=== PATIENT | female | born 1955 | race Caucasian/White ===

== ENCOUNTER 2016-08-16 08:09 | Day surgery (SDC) | payer OTHER ==
[~2016-08-16] VITALS: Ht 152.4 cm; Wt 57.0 kg
[2016-08-16] VITALS (11 sets, daily range): BP systolic 101–143; BP diastolic 53–74; PULSE 60–80; RESP 14–24; Ht 152.4 cm; Wt 57.0 kg
[~2016-08-16 08:09] MED LIST: ALBU8.5H3 INH; CEFAZOLIN 1 GM/50 ML (PMX) 50 ML IVPB ONE; CLOP75TA27 PO; FENO145T25 PO; HYDR-762 PO; METO25TA7 PO; PANT40TA4 PO; SIMV40TA2 PO
[2016-08-16] MEDS ORDERED: CARV3.12 PO (09:11)
[2016-08-16] MEDS ORDERED: ASPI-664 PO (09:11)
[2016-08-16] MEDS ORDERED: PANT40SU PO (09:11)
[2016-08-16] MEDS ORDERED: EZET10TA3 PO (09:11)
[2016-08-16] MEDS ORDERED: ATOR20TA38 PO (09:11)
[2016-08-16] MEDS ORDERED: ALPR0.254 PO (09:11)
[2016-08-16] MEDS ORDERED: HYDR-906 PO (09:11)
[2016-08-16 09:12] LABS: ADD SCAN DIFF NO
[2016-08-16] MEDS ORDERED: FAMOTIDINE 20 MG INJ IV ONE (09:15)
[2016-08-16] MEDS ORDERED: DIPHENHYDRAMINE 50 MG INJ IV ONE (09:15)
[2016-08-16] MEDS ORDERED: METHYLPREDNISOLONE 125 MG INJ IV ONE (09:15)
[2016-08-16 09:18] LABS: BASOPHILS % 0.3 % (0.0-2.0); EOSINOPHILS # 0.2 10^3/ul (0.0-0.5); EOSINOPHILS % 2.3 % (0.0-7.0); HEMOGLOBIN 13.7 g/dl (12.0-16.0); LYMPHOCYTES # 2.4 10^3/ul (0.8-2.9); LYMPHOCYTES % 25.1 % (15.0-51.0); MEAN CORPUSCULAR HEMOGLOBIN 29.3 pg (29.0-33.0); MEAN CORPUSCULAR HGB CONC 33.4 g/dl (32.0-37.0); MEAN CORPUSCULAR VOLUME 87.8 fl (82.0-101.0); MEAN PLATELET VOLUME 9.6 fl (7.4-10.4); MONOCYTE # 0.5 10^3/ul (0.3-0.9); MONOCYTES % 5.1 % (0.0-11.0); NEUTROPHIL # 6.3 10^3/ul (1.6-7.5); NEUTROPHILS % 66.9 % (39.0-77.0); PLATELET COUNT 240 10^3/UL (140-415); RED BLOOD COUNT 4.67 10^6/ul (4.20-5.40); RED CELL DISTRIBUTION WIDTH 12.6 % (11.5-14.5); WHITE BLOOD COUNT 9.4 10^3/ul (4.8-10.8)
[2016-08-16 09:22] LABS: INR 0.95; PARTIAL THROMBOPLASTIN TIME 29.5 Sec (25.0-35.0); PROTIME 12.7 Sec (12.2-14.2)
[2016-08-16 09:30] LABS: CALCIUM 9.2 mg/dl (8.4-10.2); CREATININE 0.73 mg/dl (0.44-1.00); POTASSIUM 3.6 mmol/L (3.5-5.1)
[2016-08-16] MEDS ORDERED: POLYMYXIN/BACITRACIN 1L IRRIG IRR ONE (09:30)
[2016-08-16] MEDS ORDERED: LIDOCAINE 1%/EPI 30 ML INJ ONE (10:27)
[2016-08-16] MEDS ORDERED: FENTAnyl 50 MCG/ML VIAL ONE ×2 (10:27→11:53)
[2016-08-16] MEDS ORDERED: BUPIVACAINE 0.5% (SDV) 30 ML INJ ONE (10:27)
[2016-08-16] MEDS ORDERED: LIDOCAINE 1% (MDV) 20 ML INJ ONE (10:27)
[2016-08-16] MEDS ORDERED: IODIXANOL LOCM 100 ML BTL ONE ×2 (10:27→11:05)
[2016-08-16] MEDS ORDERED: DIPHENHYDRAMINE 50 MG INJ ONE ×2 (10:27→11:53)
[2016-08-16] MEDS ORDERED: MIDAZOLAM 1 MG/ML 2 ML INJ ONE ×2 (10:27→11:49)
[2016-08-16] MEDS ORDERED: SOD CHLORIDE 0.9% 1,000 ML ONE ×2 (11:05→11:52)
--- NOTE | 2016-08-16 11:58 | OPR ---
DATE OF OPERATION: 08/16/2016 INDICATION FOR THE PROCEDURE: Chest pain, shortness of breath, abnormal stress test. The patient presents for left heart catheterization. PROCEDURE: 1. Left heart catheterization. 2. Selective right coronary angiography. 3. Selective left coronary angiography. 4. Left ventriculogram not performed; however, pressure monitoring was performed. Therefore, the s jewel as LV pressure measurements. 5. O2 saturation monitoring and blood pressure monitoring. 6. Conscious sedation for 1 hour. 7. Right femoral artery angiography and Angio-Seal deployment through the right femoral artery. 8. Defibrillator pad placements anteriorly and posteriorly. DESCRIPTION OF PROCEDURE: After informed consent was obtained by the patient, the patient was broug ht into the cardiac catheterization laboratory where the patient's right groin and left groin were p repped and draped in the usual sterile fashion. Following this, 1% lidocaine was used in order to i nfiltrate the right groin. Following this, the patient then received a 5-Kazakh sheath into the [facility] femoral artery. Following this, utilizing a JL4 and JR4 as well as a pigtail, catheterization wa s performed. No complications occurred. FINDINGS: 1. The patient did not have any coronary vascular disease discovered in the left main. 2. The LAD and circumflex came off of the left main, and it had less than 5% stenosis in both vesse ls. 3. The RCA also was not dominant and there was semi-selective injection, and it was patent with 5% or less stenosis. 4. Left ventricular pressure measurements LVEDP was 16 mmHg. IMPRESSION: No significant coronary vascular disease discovered. An echo will be ordered in the future for ejection fraction measurements. The patient has had a his tory of cardiomyopathy with an ejection fraction of less than 35% in the past. Dictated By: PARAM BUTTERFIELD MD LP/NTS Conf#: [id number] DID#: [id number] CC: PARAM BUTTERFIELD MD;*EndCC*
--- NOTE | 2016-08-16 11:59 | OPR ---
DATE OF OPERATION: 08/16/2016 INDICATION FOR PROCEDURE: This is a right heart catheterization report. PROCEDURES: 1. Right heart catheterization. 2. Mouthcard-Javier catheterization. 3. Femoral vein central line placement. 4. Removal of the central line. 5. Defibrillator pad placements anteriorly and posteriorly. 6. Pulmonary artery angiography in nonselective fashion. 7. Conscious sedation for 1 hour. 8. Fluoroscopy and fluoroscopic use in order to guide needle placement to the vessel. FINDINGS: 1. The PA pressure was 28/10. The wedge pressure was 13. 1. RV pressure was 29/3. 2. The PA pressure was 7/0. The patient does not have significant pulmonary hypertension. The patient will be treated medically. Dictated By: PARAM BUTTERFIELD MD LP/NTS Conf#: [id number] DID#: [id number] CC: PARAM BUTTERFIELD MD;*EndCC*
[2016-08-16] MEDS ORDERED: predniSONE 20 MG TAB PO SCH (12:30)
[2016-08-16] MEDS ORDERED: DIPHENHYDRAMINE 25 MG CAP PO SCH (12:30)
--- NOTE | 2016-08-16 12:36 | OPR ---
DATE OF OPERATION: 08/16/2016 INDICATION FOR THE PROCEDURE: [employer] device recall on the battery. There has bee n a recall in regards to the battery not lasting as long as it recommended to last. As a result, truman e patient has had received ventricular tachycardia therapies in the past and therefore now the patie nt presents for replacement of the battery NAME OF PROCEDURE: 1. Interrogation and reprogramming of the implantable cardiac defibrillator. 2. Interrogation and reprogramming of the implantable cardiac defibrillator postprocedure. 3. Removal of the implantable cardiac defibrillator. 4. Implantation of a new cardiac defibrillator. 5. Pocket revision. 6. Right atrial pacing recording. 7. Right ventricular pacing recording. 8. Defibrillation threshold testing. 9. External cardioversion x1. 10. Conscious sedation for 1 hour. DESCRIPTION OF PROCEDURE: After informed consent was obtained by the patient, the patient was broug ht into the cardiac catheterization laboratory where the patient's left chest and neck region was pr epped and draped in the usual sterile fashion. The patient was also given pre-IV antibiotic medicat ions. Following this, the device was removed after it was already reprogrammed. Following this, truman e pocket was revised. Then, a new device was brought into the field and connected to the leads afte r the leads were tested 1 by 1 with an alligator clip to make sure that the impedance and thresholds as well as sensing was within normal limits. Following this, the patient had the pocket revised, a s I mentioned, irrigated, and the device and leads were placed into the pocket. Pocket was sutured using 2-0 Vicryl and 4-0 Vicryl. DFT testing was performed and the modified ULV method revealed DFT of 20 joules. No complications o ccurred. EXPLANTED MATERIAL: A [employer] dual-chamber implantable cardiac defibrillator, model #CD225 [id number]. Serial #[id number]. Date of implant is 04/02/2013. Explant is today, 08/16/2016. Pacing and sensing was performed and it was within normal limits. Please see the implant sheet. Ot her lead information is also dictated on the implant sheet. IMPRESSION: Successful replacement of an implantable cardiac defibrillator with no complications. Dictated By: PARAM BUTTERFIELD MD, LP/BETTY Conf#: [id number] DID#: [id number] CC: PARAM BUTTERFIELD MD;*[facility]*
[2016-08-16] MEDS ORDERED: CEFAZOLIN 1 GM/50 ML (PMX) 50 ML IVPB SCH (13:00)
--- NOTE | 2016-08-16 16:01 | RADRPT ---
Vent Rate: 60 bpm RR Interval: 0 msec MT Interval: 132 msec QRS Duration: 86 msec QT Interval: 444 msec QTC Interval: 444 msec P-R-T [place]: 77 - 75 - 74 degrees Electronic atrial pacemaker Cannot rule out Anterior infarct , age undetermined Abnormal ECG Electronically Signed By: Oswaldo Rodrigues [id number]
== END 2016-08-16 15:10 | disposition home or self-care (01) ==
LOC: SDS 08:09
PROVIDERS: ATTEND Internal Medicine
DX: I47.2 Ventricular tachycardia (principal); I25.10 Atherosclerotic heart disease of native coronary artery without angina pectoris; R94.39 Abnormal result of other cardiovascular function study; E78.5 Hyperlipidemia, unspecified; F41.9 Anxiety disorder, unspecified
CPT/HCPCS: 33264; 80048; 85025; 85610; 85730; 93005; 93460; C1721; C1887; C1894; J1200; J1644; J2250; J2930; J3010; J7040; J7512; Q9967; Z7610

== ENCOUNTER 2017-01-24 20:08 | Emergency (ER) | payer OTHER ==
[~2017-01-24] VITALS: Ht 152.4 cm; Wt 53.0 kg
[~2017-01-24 20:08] MED LIST changes: +ALPR0.254 PO; +ASPI-664 PO; +ATOR20TA38 PO; +CARV3.12 PO; -CEFAZOLIN 1 GM/50 ML (PMX) 50 ML IVPB ONE; +EZET10TA3 PO; -FENO145T25 PO; +HYDR-906 PO; -METO25TA7 PO; +PANT40SU PO; -SIMV40TA2 PO
[2017-01-24 20:15] VITALS: Ht 152.4 cm; Wt 53.0 kg
[2017-01-24] MEDS ORDERED: ALBUTEROL 0.083% (NEB) 2.5 MG/3 ML AMP NEB STA (22:25)
[2017-01-24] MEDS ORDERED: IPRATROPIUM (NEB) 0.5 MG/2.5 ML AMP NEB STA (22:25)
--- NOTE | 2017-01-24 22:53 | ERA ---
ER Documentation Chief Complaint Date/Time DATE: 01/24/17 TIME: 22:50 Chief Complaint pt bib friend with c/o weakness and feeling sob HPI This is a 61-year-old female with a history of CHF, EF around 35%, COPD with remote smoking history who presents with multiple complaints including generalized weakness and fatigue, chills, shortness of breath. She describes bilateral lower extremity swelling that is slightly worse than usual, shortness of breath that is worse when laying flat. She occasionally describes chest pain that is pressure-like but not currently present. She denies any significant cough, no productive cough no pleuritic pain. ROS All systems reviewed and are negative except as per history of present illness. Medications Home Meds Active Scripts Prednisone* (Prednisone*) 20 Mg Tab, 40 MG PO DAILY for 4 Days, TAB Prov:JEOVANNY MORALES MD 01/25/17 Levofloxacin* (Levaquin*) 750 Mg Tablet, 750 MG PO DAILY for 5 Days, TAB Prov:JEOVANNY MORALES MD 01/25/17 Albuterol Sulfate* (Ventolin HFA*) 18 Gm Hfa.aer.ad, 2 PUFF INHALATION Q4H, #1 INHALER Prov:JEOVANNY MORALES MD 01/25/17 Reported Medications Cholecalciferol* (Vitamin D3*) 1,000 Unit Tablet, 2000 UNIT PO DAILY, TAB 01/24/17 Calcium Carbonate/Vitamin D3 (OYSTER SHELL 500 MG + VIT D TB) 1 Each Tablet, 1 EACH PO, TAB 01/24/17 Tiotropium [place]* (Spiriva*) 18 Mcg Cap.w.dev, 1 CAP INHALATION DAILY, #30 CAP 01/24/17 Cholestyramine* (Cholestyramine* Powder) 378 Gm Powder, 4 GM PO TID, EA 01/24/17 Albuterol Sulfate* (Ventolin HFA*) 18 Gm Hfa.aer.ad, 2 PUFF INHALATION Q4H, #1 INHALER 01/24/17 Tramadol Hcl* (Ultram*) 50 Mg Tablet, 50 MG PO Q8, TAB 01/24/17 Ubidecarenone/Vitamin E Mixed (Nue39-Xxd E 100 mg-10 Unit Sfg) 1 Each Capsule, 1 EACH PO, CAP 01/24/17 Multivitamins* (Theragran*) 1 Tab Tab, 1 TAB PO DAILY, TAB 01/24/17 Hydrocodone/Acetaminophen ([place] 5-325 Tablet) 1 Each Tablet, 1 EACH PO Y for PAIN, TAB 08/16/16 Carvedilol* (Coreg*) 3.125 Mg Tablet, 3.125 MG PO BID, #60 TAB 08/16/16 Atorvastatin Calcium* (Atorvastatin Calcium*) 20 Mg Tablet, 20 MG PO QHS, #30 TAB 08/16/16 Ezetimibe* (Zetia*) 10 Mg Tablet, 10 MG PO DAILY, TAB 08/16/16 Aspirin* (Aspirin* EC) 81 Mg Tablet.dr, 81 MG PO DAILY, TAB 08/16/16 Clopidogrel Bisulfate (Clopidogrel) 75 Mg Tablet, 75 MG PO DAILY, #30 TAB 02/20/16 Pantoprazole* (Pantoprazole*) 40 Mg Tablet.dr, 40 MG PO AC BREAKFAST DINNER, TAB 08/03/15 Discontinued Reported Medications Alprazolam (Xanax) 0.25 Mg Tab, 0.25 MG PO BID Y for ANXIETY, TAB 08/16/16 Pantoprazole Sodium (Protonix) 40 Mg Granpkt.dr, 40 MG PO DAILY 08/16/16 Discontinued Scripts Albuterol Sulfate* (Proair HFA*) 8.5 Gm Hfa.aer.ad, 2 PUFF INH Q4 for WHEEZING, #1 INHALER Prov:CAROL CHRISTIAN MD 09/03/15 Hydrocodone Bit-Acetaminophen* ([place]*) 10-325 Mg Tablet, 1 TAB PO Q6 Y for PAIN , #7 TAB Prov:LINDA BATISTA MD 08/03/15 Allergies Allergies: Coded Allergies: codeine (Verified Allergy, Mild, 02/20/16) erythromycin base (Verified Allergy, Mild, 02/20/16) ibuprofen (Verified Allergy, Mild, 02/20/16) tetracycline (Verified Allergy, Mild, 02/20/16) iodine (Verified Allergy, Unknown, 02/20/16) Uncoded Allergies: DYE (Allergy, Mild, 02/20/16) IV CONTRAST DYE PMhx/Soc History of Surgery: Yes (APPY,HYSTERECTOMY,BREAST AUGMENTATION,AICD,) Anesthesia Reaction: No Hx Neurological Disorder: No Hx Respiratory Disorders: No Hx Cardiac Disorders: Yes (HTN,VENTRICULAR TACHYCARDIA,CAD,HYPERLIPIDEMIA,) Hx Psychiatric Problems: Yes (ANXIETY) Hx Miscellaneous Medical Probl: Yes (LUMPHOMA,ARTHRITIS) Hx Alcohol Use: No Hx Substance Use: No Hx Tobacco Use: Yes (SOMETIMES) Smoking Status: Smoker,current status unk FmHx Family History: No diabetes Physical Exam Vitals Vital Signs Date Time Temp Pulse Resp B/P Pulse Ox O2 Delivery O2 Flow Rate FiO2 01/25/17 01:09 98.7 85 16 105/73 96 Room Air 01/25/17 00:50 67 20 99 21 01/25/17 00:00 Nasal Cannula 2 01/24/17 23:47 66 20 96 21 01/24/17 22:30 100.1 01/24/17 22:17 98.9 89 22 132/84 97 Room Air 01/24/17 20:15 99.2 92 24 125/89 97 Physical Exam General: Slight increased work of breathing head: Normocephalic, atraumatic Eyes: Pupils equally reactive, EOM intact ENT: Moist mucous membranes Neck: Supple, no lymphadenopathy Respiratory: Rhonchi at the bases bilaterally, slight increased work of breathing and tachypnea cardiovascular: RRR, no murmurs, rubs, or gallops Abdominal: Soft, non-tender, non-distended, no peritoneal signs : Deferred MSK: Scant bilateral pedal edema, no unilateral swelling, 5/5 strength Neurologic: Alert and oriented, moving all extremities, normal speech, no focal weakness, no cerebellar signs Skin: No rash Psych: Normal mood Result Diagram: 01/24/17224901/24/172249 Results 24 hrs Laboratory Tests Test 01/24/17 22:45 01/24/17 22:50 01/25/17 00:37 Lactic Acid Level 1.4mmol/L 1.1mmol/L White Blood Count 10.910^3/ul Red Blood Count 5.0210^6/ul Hemoglobin 14.5g/dl Hematocrit 43.0% Mean Corpuscular Volume 85.7fl Mean Corpuscular Hemoglobin 28.9pg Mean Corpuscular Hemoglobin Concent 33.7g/dl Red Cell Distribution Width 12.5% Platelet Count 12178^3/UL Mean Platelet Volume 9.8fl Neutrophils % 66.3% Lymphocytes % 24.2% Monocytes % 8.3% Eosinophils % 0.5% Basophils % 0.2% Nucleated Red Blood Cells % 0.0/100WBC Neutrophils # (Manual) 7.310^3/ul Lymphocytes # 2.610^3/ul Monocytes # 0.910^3/ul Eosinophils # 0.110^3/ul Basophils # 0.010^3/ul Nucleated Red Blood Cells # 0.010^3/ul Sodium Level 141mmol/L Potassium Level 3.7mmol/L Chloride Level 106mmol/L Carbon Dioxide Level 24mmol/L Anion Gap 15 Blood Urea Nitrogen 14mg/dl Creatinine 0.72mg/dl Glucose Level 112mg/dl Calcium Level 10.0mg/dl Troponin I < 0.012ng/ml B-Type Natriuretic Peptide 102PG/ML Current Medications Medications (Trade) Dose Ordered Sig/Gus Route PRN Reason Start Time Stop Time Status Last Admin Dose Admin Albuterol (Proventil 0.083% (Neb)) 2.5 mg ONCE STAT NEB 01/24/17 22:25 01/24/17 22:27 DC 01/24/17 23:47 Ipratropium [place] (Atrovent 0.02% (Neb)) 0.5 mg ONCE STAT NEB 01/24/17 22:25 01/24/17 22:27 DC 01/24/17 23:47 Acetaminophen (Tylenol Tab) 650 mg ONCE ONCE PO 01/24/17 23:00 01/24/17 23:01 DC 01/24/17 23:07 Methylprednisolone Sodium Succinate (Solu-Medrol) 125 mg ONCE STAT IV 01/25/17 00:35 01/25/17 00:37 DC 01/25/17 01:01 Levofloxacin (Levaquin) 750 mg ONCE ONCE PO 01/25/17 01:00 01/25/17 01:01 DC 01/25/17 01:01 Albuterol (Proventil 0.083% (Neb)) 2.5 mg ONCE STAT NEB 01/25/17 00:40 01/25/17 00:41 DC 01/25/17 00:49 Ipratropium [place] (Atrovent 0.02% (Neb)) 0.5 mg ONCE STAT NEB 01/25/17 00:40 01/25/17 00:41 DC 01/25/17 00:50 Procedures/MDM EKG, MONITORS, & DIAGNOSTIC IMAGING: EKG: I reviewed and interpreted a 12-lead EKG. Rhythm: Normal sinus rhythm Ectopy: None Intervals: No abnormalities ST segments: No elevations or depressions T waves: No contiguous inversions Chest x-ray: I reviewed and interpreted a 1 view of the chest Mediastinum: No enlargement Cardiac silhouette: No cardiomegaly Airspace: Clear lung moe bilaterally without evidence of pneumothorax Bones: No evidence of fracture LAB INTERPRETATION: No leukocytosis, negative troponin, normal BNP MEDICAL DECISION MAKING: The patient's presentation has a broad differential including COPD exacerbation , CHF exacerbation, viral syndrome or pneumonia. She feels warm and has a low- grade temperature. Sepsis screening was initiated. The patient does have a poor EF therefore aggressive fluid resuscitation will be held until further assessment with laboratory testing and diagnostic imaging. The patient will benefit from a breathing treatment. The patient describes her chest pain is more consistent with COPD rather than her CHF. It is nonexertional. I do not believe this is consistent with acute coronary syndrome. However, EKG and troponin would be appropriate. ER COURSE: The patient has received 2 breathing treatments. Her laboratory testing and diagnostic imaging is pointing to COPD with exacerbation given normal troponin, normal BNP, chest x-ray without pulmonary edema. The patient has a negative troponin, I do not believe this is consistent with cardiac etiology. The patient was then given steroids and Levaquin to treat COPD with exacerbation. She was reevaluated multiple times and has improved symptoms, her work of breathing has normalized and she is resting comfortably. I discussed inpatient versus outpatient management. The patient prefers discharge home. I believe this is reasonable. No concern for pulmonary embolism or acute coronary syndrome or CHF at this point. She should return for any worsening symptoms. She verbalizes understanding. I kept the patient and/or family informed of laboratory and diagnostic imaging results throughout the emergency room course. DISPOSITION PLAN: We discussed follow up with the patient's primary care doctor within 24 to 48 hours as needed. We also discussed return to the emergency room for worsening symptoms or worsening condition. Outpatient referral: [None required] Discharge Medications: Ventolin, prednisone, Levaquin Departure Diagnosis: Primary Impression: COPD with exacerbation Additional Impression: Viral syndrome Condition: Stable JEOVANNY MORALES MD Jan 24, 2017 22:53
--- NOTE | 2017-01-24 22:58 | RADRPT ---
PROCEDURE: Portable chest x-ray. CLINICAL INDICATION: 61 years of age, female. Chest pain. TECHNIQUE: Portable AP view of the chest. COMPARISON: September 03, 2015 FINDINGS: There is a dual lead left subclavian pacemaker with electrodes over the right atrium and right ventr icle. Right ventricular electrode is positioned more superiorly than on prior exam. Aortic contour is normal. Small heart size. Cardiomediastinal contours are unchanged. Linear left lung base opacity likely represents atelectasis or scar. Lungs are otherwise clear. Negative for pleural effusion or pneumothorax. No acute bony abnormality. IMPRESSION: Dual lead left subclavian pacemaker. Right ventricular lead is in a more superior position than on p rior exam. This is of uncertain significance. Linear opacity left lung base likely represents atelectasis or scar. Small cardiac silhouette is unchanged from prior exam and may be due to lung hyperinflation. RPTAT: HCTS Physician Pankaj Date Time Electronically viewed and signed by Physician Pankaj on 01/24/2017 22:57 /
[2017-01-24] MEDS ORDERED: ACETAMINOPHEN 325 MG TAB PO ONE (23:00)
[2017-01-24 23:25] LABS: BASOPHILS % 0.2 % (0.0-2.0); EOSINOPHILS # 0.1 10^3/ul (0.0-0.5); EOSINOPHILS % 0.5 % (0.0-7.0); HEMOGLOBIN 14.5 g/dl (12.0-16.0); LYMPHOCYTES # 2.6 10^3/ul (0.8-2.9); LYMPHOCYTES % 24.2 % (15.0-51.0); MEAN CORPUSCULAR HEMOGLOBIN 28.9 pg (29.0-33.0); MEAN CORPUSCULAR HGB CONC 33.7 g/dl (32.0-37.0); MEAN CORPUSCULAR VOLUME 85.7 fl (82.0-101.0); MEAN PLATELET VOLUME 9.8 fl (7.4-10.4); MONOCYTE # 0.9 10^3/ul (0.3-0.9); MONOCYTES % 8.3 % (0.0-11.0); NEUTROPHILS % 66.3 % (39.0-77.0); PLATELET COUNT 277 10^3/UL (140-415); RED BLOOD COUNT 5.02 10^6/ul (4.20-5.40); RED CELL DISTRIBUTION WIDTH 12.5 % (11.5-14.5); WHITE BLOOD COUNT 10.9 10^3/ul (4.8-10.8)
[2017-01-24 23:43] LABS: ANION GAP 15 (8-16); BLOOD UREA NITROGEN 14 mg/dl (7-20); CARBON DIOXIDE 24 mmol/L (21-31); CHLORIDE 106 mmol/L (97-110); CREATININE 0.72 mg/dl (0.44-1.00); GLUCOSE 112 mg/dl (70-220); POTASSIUM 3.7 mmol/L (3.5-5.1); SODIUM 141 mmol/L (135-144)
[2017-01-24] MEDS ORDERED: CHOL100062 PO (23:44)
[2017-01-24] MEDS ORDERED: CALC-277 PO (23:44)
[2017-01-24] MEDS ORDERED: UBID1CAP53 PO (23:44)
[2017-01-24] MEDS ORDERED: TRAM-40 PO (23:44)
[2017-01-24] MEDS ORDERED: ALBU18HF INHALATION (23:44)
[2017-01-24] MEDS ORDERED: CHOL378P PO (23:44)
[2017-01-24] MEDS ORDERED: TIOT18CA INHALATION (23:44)
[2017-01-24] MEDS ORDERED: MULTI PO (23:44)
[2017-01-24 23:56] LABS: B-TYPE NATRIURETIC PEPTIDE 102 PG/ML (0-125); TROPONIN-I < 0.012 ng/ml (0.00-0.12)
[2017-01-25] MEDS ORDERED: METHYLPREDNISOLONE 125 MG INJ IV STA (00:35)
[2017-01-25] MEDS ORDERED: IPRATROPIUM (NEB) 0.5 MG/2.5 ML AMP NEB STA (00:40)
[2017-01-25] MEDS ORDERED: ALBUTEROL 0.083% (NEB) 2.5 MG/3 ML AMP NEB STA (00:40)
[2017-01-25] MEDS ORDERED: LEVOFLOXACIN 750 MG TABLET PO ONE (01:00)
[2017-01-25] MEDS ORDERED: PRED20TA PO (01:40)
[2017-01-25] MEDS ORDERED: ALBU18HF INHALATION (01:40)
[2017-01-25] MEDS ORDERED: LEVO750T25 PO (01:40)
[2017-01-25 02:15] VITALS: BP 110/78; PULSE 86; RESP 18; TEMP 98.7
== END 2017-01-25 02:25 | disposition home or self-care (01) ==
LOC: E/R 20:08
DX: J44.1 Chronic obstructive pulmonary disease with (acute) exacerbation (principal); B34.9 Viral infection, unspecified; I50.9 Heart failure, unspecified; I10 Essential (primary) hypertension; I25.10 Atherosclerotic heart disease of native coronary artery without angina pectoris; F17.210 Nicotine dependence, cigarettes, uncomplicated; Z79.82 Long term (current) use of aspirin; Z79.01 Long term (current) use of anticoagulants
CPT/HCPCS: 36415; 71010; 80048; 83605; 83880; 84484; 85025; 87040; 87400; 93005; 94640; 94664; 96374; J2930; Z7502; Z7610

== ENCOUNTER 2017-02-12 10:01 | Day surgery (SDC) | payer OTHER ==
[~2017-02-12] VITALS: Ht 152.4 cm; Wt 55.0 kg
[2017-02-12] VITALS (9 sets, daily range): BP systolic 103–139; BP diastolic 60–69; PULSE 60–66; RESP 16–25; Ht 152.4 cm; Wt 55.0 kg
[~2017-02-12 10:01] MED LIST changes: +ALBU18HF INHALATION; -ALBU8.5H3 INH; -ALPR0.254 PO; +CALC-277 PO; +CHOL100062 PO; +CHOL378P PO; -HYDR-762 PO; +LEVO750T25 PO; +MULTI PO; -PANT40SU PO; +PRED20TA PO; +TIOT18CA INHALATION; +TRAM-40 PO; +UBID1CAP53 PO
[2017-02-12] MEDS ORDERED: PRAV10TA43 PO (10:29)
[2017-02-12] MEDS ORDERED: CEFAZOLIN 1 GM/50 ML (PMX) 50 ML IVPB SCH (11:30)
[2017-02-12] MEDS ORDERED: SOD CHLORIDE 0.9% 1,000 ML IV SCH (13:23)
[2017-02-12] MEDS ORDERED: ALBUTEROL/IPRATROPIUM (NEB) 3 ML AMP INH ONE (13:30)
[2017-02-12] MEDS ORDERED: ALPRAZOLAM 0.25 MG TAB PO ONE (13:30)
[2017-02-12] MEDS ORDERED: CEFAZOLIN 2 GM/50 ML (PMX) 50 ML IVPB ONE ×3 (14:14→14:43)
[2017-02-12] MEDS ORDERED: LIDOCAINE 1%/EPI 30 ML INJ ONE (14:15)
[2017-02-12] MEDS ORDERED: POLYMYXIN/BACITRACIN 1L IRRIG IRR ONE (14:30)
[2017-02-12] MEDS ORDERED: LIDOCAINE 2% (SDV) 5 ML INJ ONE (14:37)
[2017-02-12] MEDS ORDERED: PROPOFOL 40 ML ONE (14:37)
[2017-02-12] MEDS ORDERED: CEFAZOLIN 1 GM/50 ML (PMX) 50 ML IVPB ONE (14:42)
[2017-02-12] MEDS ORDERED: PHENYLephrine (100 MCG/ML) 5ML SYG ONE (15:19)
[2017-02-12] MEDS ORDERED: PHENYLephrine 10 MG INJ ONE (15:19)
--- NOTE | 2017-02-12 16:00 | SIPON ---
Date/Time of Note Date/Time of Note DATE: 02/12/17 TIME: 15:59 Operative Report Preoperative Diagnosis chest pain at the icd site Postoperative Diagnosis same Operation/Procedure Performed revision of icd pocket and device interrogation Surgeon see signature line assistant athletic trainer none Anesthesia: MAC Estimated blood loss: none Transfusion Required none Specimen none Grafts/Implants none Complications none PARAM BUTTERFIELD MD Feb 12, 2017 16:00
[2017-02-12] MEDS ORDERED: MEPERIDINE 25 MG INJ ONE (16:15)
[2017-02-12] MEDS ORDERED: MEPERIDINE 25 MG INJ IV PRN (16:30)
[2017-02-12] MEDS ORDERED: LORAZEPAM 2 MG INJ IV PRN (16:30)
[2017-02-12] MEDS ORDERED: FENTAnyl 50 MCG/ML VIAL IV PRN ×3 (16:30)
--- NOTE | 2017-02-12 22:43 | OPR ---
DATE OF OPERATION: 02/12/2017 INDICATIONS FOR THE PROCEDURE: The patient has been experiencing extreme pain and discomfort and inability to mobilize her arm due to the fact that the patient's pacemaker site is extremely painful. It is also extremely painful to any form of motion as I mentioned. As a result, the patient's pacemaker defibrillator has to be relocated. PROCEDURE: 1. Interrogation and reprogramming of the implantable cardiac defibrillator prior to procedure. 2. Interrogation and reprogramming of the defibrillator post procedure. 3. Pocket revision. 4. Right atrial pacing and recording. 5. Right ventricular pacing and recording. 6. Defibrillator placement anteriorly and posteriorly. 7. O2 saturation monitoring. 8. Anesthesia was present for the anesthesia. OPERATIVE PROCEDURE: After informed consent was obtained by the patient, the patient was brought to the cardiac catheterization laboratory where the patient's left chest and neck region was prepped and draped in the usual sterile fashion. Following this 1 percent lidocaine was used in order to infiltrate the left deltopectoral groove. Following this, the patient's device was interrogated and reprogrammed already and then the device was removed from the pocket. No complications occurred. Following this, the patient then had revision of the pocket and creating a new layer in order to implant the device into a more medial region. Following this, the leads were tested 1 by 1. Following this, the device the brought back and placed into the pocket with no complications. The patient's device was then irrigated copiously with antibiotic solution and then the patient left the cardiac operating room in stable condition after the pocket was sutured using 2-0 Vicryl and 4-0 Vicryl, then a pressure dressing was applied over the skin. There has not been any changes in the device or the leads. It is the same device, it was just located in the pocket. Pacing and recording has been stable. IMPRESSION: Successful repositioning of the implantable cardioverter defibrillator with no complications. Dictated By: Christian Parker MD /tracy/shabnam /Document#: [id number]
--- NOTE | 2017-02-13 14:11 | RADRPT ---
Vent Rate: 60 bpm RR Interval: 0 msec [place] Interval: 128 msec QRS Duration: 82 msec QT Interval: 450 msec QTC Interval: 450 msec P-R-T [place]: 76 - 79 - 81 degrees Electronic atrial pacemaker Electronically Signed By: Oswaldo Rodrigues [id number]
== END 2017-02-12 18:00 | disposition home or self-care (01) ==
LOC: SDS 10:01
PROVIDERS: ATTEND Internal Medicine
DX: T82.847A Pain due to cardiac prosthetic devices, implants and grafts, initial encounter (principal); I25.10 Atherosclerotic heart disease of native coronary artery without angina pectoris; M19.90 Unspecified osteoarthritis, unspecified site; K21.9 Gastro-esophageal reflux disease without esophagitis; J44.9 Chronic obstructive pulmonary disease, unspecified; I10 Essential (primary) hypertension; I25.2 Old myocardial infarction; Z87.891 Personal history of nicotine dependence; Z88.5 Allergy status to narcotic agent; Z88.8 Allergy status to other drugs, medicaments and biological substances; Z88.1 Allergy status to other antibiotic agents; Z91.041 Radiographic dye allergy status; Z85.72 Personal history of non-Hodgkin lymphomas; Y83.8 Other surgical procedures as the cause of abnormal reaction of the patient, or of later complication, without mention of misadventure at the time of the procedure
CPT/HCPCS: 33223; 93005; J0690; J2175; Z7610; J2370

== ENCOUNTER 2017-08-02 07:35 | Day surgery (SDC) | END 2017-08-02 11:50 | disposition home or self-care (01) ==

== ENCOUNTER 2018-01-02 21:50 | Emergency (ER) | END 2018-01-03 01:46 | disposition home or self-care (01) ==

== ENCOUNTER 2018-03-25 12:14 | Emergency (ER) | END 2018-03-25 18:17 | disposition home or self-care (01) ==

== ENCOUNTER 2018-09-08 08:02 | Day surgery (SDC) | payer OTHER ==
[~2018-09-08] VITALS: Ht 152.4 cm; Wt 60.6 kg
[~2018-09-08 08:02] MED LIST changes: +ALBU2.5V3 NEB; +AMOX1TAB10 PO; -ASPI-664 PO; -ATOR20TA38 PO; +AZIT250T PO; -CALC-277 PO; +CALC1TAB93 PO; -CARV3.12 PO; +CARV3.1260 PO; -CHOL100062 PO; +CHOL200078 PO; +CHOL210P PO; -CHOL378P PO; -CLOP75TA27 PO; +DIPH25CA42 PO; -EZET10TA3 PO; +EZET10TA31 PO; +FLUO10CA17 PO; -HYDR-906 PO; +IPRA30SP NS; -LEVO750T25 PO; -MULTI PO; +PRED50TA PO; -TIOT18CA INHALATION; -TRAM-40 PO; +TRAM50TA PO; -UBID1CAP53 PO; +UMEC1DIS INHALATION
--- NOTE | 2018-09-08 08:33 | PREAC ---
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 not on B-Seven Reported Medications [Repatha] No Conflict Check 09/08/18 Albuterol Sulfate* (Albuterol Sulfate* Neb) 0.083%-3 Ml Neb, 2.5 MG NEB Q3H PRN for WHEEZING AND SOB, #30 VIAL 01/03/18 Umeclidinium Brm-Vilanterol Tr (Anoro Ellipta) 62.5-25 Mcg Disk.w.dev, 1 EACH INHALATION DAILY, #1 DISK 01/03/18 Albuterol Sulfate* (Ventolin HFA*) 18 Gm Hfa.aer.ad, 2 PUFF INHALATION Q4H, #1 INHALER 01/03/18 Ezetimibe* (Zetia*) 10 Mg Tablet, 10 MG PO DAILY, TAB 08/16/16 Pantoprazole* (Pantoprazole*) 40 Mg Tablet.dr, 40 MG PO AC BREAKFAST DINNER, TAB 08/03/15 Discontinued Reported Medications Ipratropium [place] (Ipratropium [place]) 30 Ml Advance, 30 ML NS, SPRAY 01/03/18 Calcium Carbonate/Vitamin D3 (OYSTER SHELL 500 MG + VIT D TB) 1 Each Tablet, 1 EACH PO, TAB 01/03/18 Diphenhydramine Hcl (Banophen) 25 Mg Capsule, 25 MG PO PRN, CAP 01/03/18 Prednisone* (Prednisone*) 20 Mg Tab, 20 MG PO DAILY, TAB 01/03/18 Cholecalciferol (Vitamin D3) (Vitamin D3) 2,000 Unit Tab.chew, 2000 UNIT PO DAILY, TAB.CHEW 01/03/18 Cholestyramine/Aspartame* (Cholestyramine* Light Powder) 210 Gm Powder, 4 GM PO DAILY, EA 01/03/18 Fluoxetine Hcl* (Fluoxetine Hcl*) 10 Mg Capsule, 10 MG PO DAILY, CAP 01/03/18 Carvedilol* (Carvedilol*) 3.125 Mg Tablet, 3.125 MG PO BID, #60 TAB 01/03/18 Tramadol Hcl* (Ultram*) 50 Mg Tablet, 50 MG PO Q6H PRN for PAIN, TAB 01/03/18 Discontinued Scripts Prednisone* (Prednisone*) 50 Mg Tablet, 50 MG PO DAILY for 5 Days, TAB Prov:DEMETRIUS GARCIAS MD 03/25/18 Azithromycin* (Zithromax*) 250 Mg Tablet, 250 MG PO DAILY for 4 Days, TAB start tomorrow 03/26/18 Prov:DEMETRIUS GARCIAS MD 03/25/18 Amoxicillin/Potassium Clav (Amox-Clav 875-125 mg Tablet) 875-125 mg Tab, 1 TAB PO BID for 7 Days, #14 TAB Prov:DEMETRIUS GARCIAS MD 03/25/18 Meds reviewed: Yes Allergies Coded Allergies: erythromycin base (Verified Allergy, Mild, 02/12/17) ibuprofen (Verified Allergy, Mild, 02/12/17) tetracycline (Verified Allergy, Mild, 02/12/17) iodine (Verified Allergy, Unknown, 02/12/17) Uncoded Allergies: DYE (Allergy, Mild, 02/20/16) IV CONTRAST DYE Allergies Reviewed: Yes Labs/Studies Labs Reviewed: Reviewed by anesthesiologist test: N/A Studies: ECG Pre-procedure Exam Airway: Adequate mouth opening, Adequate thyromental dist Mallampati: Mallampati II Teeth: Normal (dentures upper and lower ) Lung: Normal Heart: Normal ASA Physical Status ASA physical status: 3 Emergency: None Planned Anesthetic General/MAC: MAC Planned Pain Management Parenteral pain med, Local by surgeon Pre-operative Attestations Prior to commencing anesthesia and surgery, the patient was re-evaluated, there was verification of: *The patient's identity *The results of appropriate recent lab work and preoperative vital signs *The above evaluation not changing prior to induction *Anesthetic plan, risk benefits, alternative and complications discussed with patient/family; questions answered; patient/family understands, accepts and wishes to proceed. JOSE ROSA Sep 08, 2018 08:33
[2018-09-08] MEDS ORDERED: ETOMIDATE 20 MG INJ ONE (08:37)
[2018-09-08] MEDS ORDERED: PROPOFOL 20 ML ONE (08:38)
[2018-09-08] MEDS ORDERED: LIDOCAINE 2% (SDV) 5 ML INJ ONE (08:38)
[2018-09-08] MEDS ORDERED: OXYCODONE/ACETAMINOPHEN (5/325) TAB PO PRN ×2 (09:00)
[2018-09-08] MEDS ORDERED: FENTAnyl 50 MCG/ML VIAL IV PRN ×3 (09:00)
[2018-09-08] MEDS ORDERED: ONDANSETRON 4 MG INJ IV PRN (09:00)
[2018-09-08] MEDS ORDERED: ALBUTEROL 0.083% (NEB) 2.5 MG/3 ML AMP HHN PRN (09:00)
[2018-09-08] MEDS ORDERED: REPATHA (09:05)
[2018-09-08 09:11] VITALS: Ht 152.4 cm; Wt 60.6 kg
[2018-09-08 10:03] VITALS: BP 128/66; PULSE 63; RESP 18
--- NOTE | 2018-09-08 10:56 | PAC ---
Date/Time of Note Date/Time of Note DATE: 09/08/18 TIME: 10:55 Post-Anesthesia Notes Post-Anesthesia Note Last documented vital signs POST BP 145/76 hr 74 sPO2 99% tEMP 97.5 RR 16 Activity: WNL Respiratory function: WNL Cardiovascular function: WNL Mental status: Baseline Pain reasonably controlled: Yes Hydration appropriate: Yes Nausea/Vomiting absent: Yes JOSE ROSA Sep 08, 2018 10:56
[2018-09-08 11:15] VITALS: BP 122/60; PULSE 75; RESP 20
== END 2018-09-08 11:48 | disposition home or self-care (01) ==
LOC: GIL 08:02
PROVIDERS: ATTEND Internal Medicine Gastroenterology
DX: R19.4 Change in bowel habit (principal); D12.5 Benign neoplasm of sigmoid colon; K29.30 Chronic superficial gastritis without bleeding; K57.30 Diverticulosis of large intestine without perforation or abscess without bleeding; K44.9 Diaphragmatic hernia without obstruction or gangrene; K21.9 Gastro-esophageal reflux disease without esophagitis; J44.9 Chronic obstructive pulmonary disease, unspecified; E78.5 Hyperlipidemia, unspecified
CPT/HCPCS: 43239; 45380; Z7610; 88305; 88312

== ENCOUNTER 2018-12-15 13:38 | Emergency (ER) | payer MEDICAID, OTHER ==
[~2018-12-15] VITALS: Ht 152.4 cm; Wt 59.1 kg
[~2018-12-15 13:38] MED LIST changes: -AMOX1TAB10 PO; -AZIT250T PO; -CALC1TAB93 PO; -CARV3.1260 PO; -CHOL200078 PO; -CHOL210P PO; -DIPH25CA42 PO; -FLUO10CA17 PO; -IPRA30SP NS; -PRED20TA PO; -PRED50TA PO; +REPATHA; -TRAM50TA PO
[2018-12-15 13:39] VITALS: Ht 152.4 cm; Wt 59.1 kg
[2018-12-15] MEDS ORDERED: FAMOTIDINE 20 MG INJ IV STA (13:55)
[2018-12-15] MEDS ORDERED: LIDOCAINE/MYLANTA 40 ML BTL PO STA (13:55)
[2018-12-15] MEDS ORDERED: ONDANSETRON 4 MG INJ IV STA (13:55)
[2018-12-15] MEDS ORDERED: BELLADONNA/PHENOBARBITAL TAB PO STA (13:55)
[2018-12-15] MEDS ORDERED: SOD CHLORIDE 0.9% 500 ML IV STA (13:55)
[2018-12-15] MEDS ORDERED: PROM5SYR2 PO (14:30)
[2018-12-15] MEDS ORDERED: MAGN400T27 PO (14:30)
[2018-12-15] MEDS ORDERED: CORE20CR PO (14:30)
[2018-12-15] MEDS ORDERED: CHOL100062 PO (14:30)
[2018-12-15] MEDS ORDERED: CEFTRIAXONE 1 GM/50 ML (PMX) 50 ML IVPB ONE (14:30)
[2018-12-15] MEDS ORDERED: POTA20TA9 PO (14:30)
--- NOTE | 2018-12-15 16:36 | ERD ---
ER Documentation Chief Complaint Chief Complaint ABD PAIN WITH N/V X 3 DAYS. HPI This is a 62-year-old female with a past medical history of per lipidemia, heart failure, asthma/COPD, previous abdominal surgeries, significant chronic abdominal pain with an endoscopy that revealed peptic ulcer disease, seen in an outpatient by a senior marketing specialist who is now presenting with 3 days of waxing and waning mild to moderate burning aching cramping epigastric and suprapubic abdominal pain with nausea and multiple episodes of nonbilious nonbloody vomiting over the last 3 days. The patient is not sure if it is associated with eating or not. The patient does not endorse any constipation or diarrhea. She does not endorse any black or bloody or tarry stools. She does endorse slight dysuria but does not endorse any hematuria or urgency or frequency. The patient denies feeling sick recently. The patient denies fever or chills. The patient has had no headache or vision changes. The patient does not endorse neck or back pain. The patient denies lightheadedness or dizziness. The patient has had no chest pain or trouble breathing. The patient has had no focal deficits. The patient has had no weakness or numbness or tingling to the face or extremities. ROS All systems reviewed and are negative except as per history of present illness. Medications Home Meds Reported Medications Magnesium Oxide* (Mag-Oxide*) 400 Mg Tablet, 400 MG PO DAILY, TAB 12/15/18 Promethazine HCl/Codeine (Prometh-Codein 6.25-10 mg/5 ml) 5 Ml Syrup, 5 ML PO Q8 PRN for COUGH 12/15/18 Potassium Chloride (Klor-Con M20) 20 Meq Tab.prt.sr, 20 MEQ PO DAILY 12/15/18 Carvedilol* (Coreg CR*) 20 Mg Capsr, 20 MG PO DAILY, #30 CAP 12/15/18 Cholecalciferol* (Vitamin D3*) 1,000 Unit Tablet, 1000 UNIT PO DAILY, TAB 12/15/18 Albuterol Sulfate* (Albuterol Sulfate* Neb) 0.083%-3 Ml Neb, 2.5 MG NEB Q3H PRN for WHEEZING AND SOB, #30 VIAL 01/03/18 Umeclidinium Brm-Vilanterol Tr (Anoro Ellipta) 62.5-25 Mcg Disk.w.dev, 1 EACH INHALATION DAILY, #1 DISK 01/03/18 Albuterol Sulfate* (Ventolin HFA*) 18 Gm Hfa.aer.ad, 2 PUFF INHALATION Q4H, #1 INHALER 01/03/18 Pantoprazole* (Pantoprazole*) 40 Mg Tablet.dr, 40 MG PO AC BREAKFAST DINNER, TAB 08/03/15 Discontinued Reported Medications [Repatha] No Conflict Check 09/08/18 Ezetimibe* (Zetia*) 10 Mg Tablet, 10 MG PO DAILY, TAB 08/16/16 Allergies Allergies: Coded Allergies: erythromycin base (Verified Allergy, Mild, 02/12/17) ibuprofen (Verified Allergy, Mild, 02/12/17) tetracycline (Verified Allergy, Mild, 02/12/17) iodine (Verified Allergy, Unknown, 02/12/17) Uncoded Allergies: DYE (Allergy, Mild, 02/20/16) IV CONTRAST DYE PMhx/Soc History of Surgery: Yes (TUBAL , HYSTERECTOMY, BILAT BREAST IMPLANT) Anesthesia Reaction: No Hx Neurological Disorder: No Hx Respiratory Disorders: Yes (COPD) Hx Cardiac Disorders: Yes (PM/AICD, ARRHYTHMIA, HIGH CHOLESTEROL) Hx Psychiatric Problems: No Hx Miscellaneous Medical Probl: Yes (L-BREAST IMPLANT COLLAPSE) Hx Alcohol Use: No Hx Substance Use: Yes (MARIJUANA LAST USE 09/07/18) Hx Tobacco Use: Yes Smoking Status: Current some day smoker FmHx Family History: No diabetes Physical Exam Vitals Vital Signs Date Temp Pulse Resp B/P (MAP) Pulse Ox O2 O2 Flow FiO2 Time Delivery Rate 12/15/18 71 16 109/94 95 Room Air 14:13 (99) 12/15/18 98.5 79 20 116/59 93 13:39 (78) Physical Exam Const: No acute distress Head: Atraumatic Eyes: Normal Conjunctiva ENT: Normal External Ears, Nose and Mouth. Neck: Full range of motion. No meningismus. Resp: Clear to auscultation bilaterally Cardio: Regular rate and rhythm, no murmurs Abd: Soft, non distended. Mild epigastric and suprapubic tenderness. No rebound or guarding. Normal bowel sounds Skin: No petechiae or rashes Back: No midline or flank tenderness Ext: No cyanosis, or edema Neur: Awake and alert Psych: Normal Mood and Affect Result Diagram: 12/15/18 1404 12/15/18 1404 Results 24 hrs Laboratory Tests Test 12/15/18 14:01 12/15/18 14:04 Urine Color YELLOW Urine Clarity SLIGHTLY CLOUDY Urine pH 5.0 Urine Specific [place] 1.019 Urine Ketones NEGATIVE mg/dL Urine Nitrite POSITIVE mg/dL Urine Bilirubin NEGATIVE mg/dL Urine Urobilinogen NEGATIVE mg/dL Urine Leukocyte Esterase 1+ Tee/ul Urine Microscopic RBC 1 /HPF Urine Microscopic WBC 52 /HPF Urine Bacteria FEW /HPF Urine Mucus MODERATE /HPF Urine Hemoglobin 2+ mg/dL Urine Glucose NEGATIVE mg/dL Urine Total Protein NEGATIVE mg/dl White Blood Count 11.6 10^3/ul Red Blood Count 5.04 10^6/ul Hemoglobin 14.4 g/dl Hematocrit 44.2 % Mean Corpuscular Volume 87.7 fl Mean Corpuscular Hemoglobin 28.6 pg Mean Corpuscular Hemoglobin Concent 32.6 g/dl Red Cell Distribution Width 12.8 % Platelet Count 305 10^3/UL Mean Platelet Volume 9.5 fl Immature Granulocytes % 0.300 % Neutrophils % 61.5 % Lymphocytes % 29.6 % Monocytes % 7.0 % Eosinophils % 1.4 % Basophils % 0.2 % Nucleated Red Blood Cells % 0.0 /100WBC Immature Granulocytes # 0.030 10^3/ul Neutrophils # 7.1 10^3/ul Lymphocytes # 3.4 10^3/ul Monocytes # 0.8 10^3/ul Eosinophils # 0.2 10^3/ul Basophils # 0.0 10^3/ul Nucleated Red Blood Cells # 0.0 10^3/ul Sodium Level 141 mmol/L Potassium Level 4.8 mmol/L Chloride Level 106 mmol/L Carbon Dioxide Level 29 mmol/L Anion Gap 6 Blood Urea Nitrogen 15 mg/dl Creatinine 0.89 mg/dl Est Glomerular Filtrat Rate mL/min > 60 mL/min Glucose Level 98 mg/dl Calcium Level 9.9 mg/dl Total Bilirubin 0.6 mg/dl Direct Bilirubin 0.00 mg/dl Indirect Bilirubin 0.6 mg/dl Aspartate Amino Transf (AST/SGOT) 29 IU/L Alanine Aminotransferase (ALT/SGPT) 26 IU/L Alkaline Phosphatase 103 IU/L Total Protein 8.0 g/dl Albumin 4.5 g/dl Globulin 3.50 g/dl Albumin/Globulin Ratio 1.28 Lipase 61 U/L Current Medications Medications Dose Sig/Gus Start Time Status Last (Trade) Ordered Route PRN Stop Time Admin Dose Reason Admin Sodium 500 ml @ Q1H STAT 12/15/18 DC 12/15/18 Chloride 500 mls/hr IV 13:55 14:12 12/15/18 14:54 Ondansetron 4 mg ONCE STAT 12/15/18 DC 12/15/18 HCl (Zofran IV 13:55 14:09 Inj) 12/15/18 13:56 Famotidine 20 mg ONCE STAT 12/15/18 DC 12/15/18 (Pepcid Iv) IV 13:55 14:09 12/15/18 13:56 40 ml ONCE STAT 12/15/18 DC 12/15/18 Miscellaneous PO 13:55 14:09 Medication 12/15/18 13:56 (Gi Cocktail (2)) Belladonna/ 2 tab ONCE STAT 12/15/18 DC 12/15/18 Phenobarbital PO 13:55 14:09 () 12/15/18 13:56 Ceftriaxone 50 ml @ ONCE ONCE 12/15/18 DC 12/15/18 Sodium 100 mls/hr IVPB 14:30 14:55 12/15/18 14:59 Procedures/MDM MDM The patient's presentation warrants further investigation. Previous medical re cords, if available, were reviewed. LABS The patient's laboratory testing was obtained and reviewed. No emergent treatment was required unless described below. CBC: Mild leukocytosis without shift, likely reactive. No E/o systemic infection or severe anemia or thrombocytopenia Chemistry: No E/o severe acidosis or alkalosis or renal failure or liver disease or diabetic ketoacidosis Lipase: No E/o pancreatitis Urine: E/o acute infection without hematuria IMAGING Imaging and Radiology interpretation reviewed. CXR FINDINGS: The heart and mediastinum are within normal limits. The pulmonary v asculature are unremarkable. The aorta demonstrates atherosclerotic calcifications. There is no lung consolidation, pleural effusion or pneumothorax. Degenerative changes are seen within the thoracic spine and shoulders. There is no acute osseous abnormality. Left cardiac pacing device appears stable. IMPRESSION: No acute disease. Electronically viewed and signed by .Ginger Leos MD, on 12/15/2018 14:57 TREATMENT/DISPOSITION The patient presents for exacerbated chronic abdominal pain. The patient does endorse epigastric pain and has a history of peptic ulcer disease. GERD versus gastritis versus peptic ulcer disease are all possibilities today. The patient was treated with IV fluids, Zofran, Pepcid and a GI cocktail with some improvement of her symptoms. There is also evidence of urinary tract infection, which the patient reports she has not had before. The patient was given a dose of Rocephin in the emergency department. This may be treated with an outpatient regimen. The patient is not septic and does not require a septic work-up. The patient does not have any evidence of peritonitis. The patient does not have clinical symptoms concerning for mesenteric ischemia or ischemic colitis. There is no evidence of viscus perforation. The patient does not have right upper quadrant tenderness, and I have low suspicion for cholecystitis or biliary colic. The patient does not have left upper quadrant tenderness. I have low suspicion for pancreatitis. The patient does not have any right lower quadrant tenderness, or periumbilical tenderness. I have low suspicion for appendicitis. The patient does not have any left lower quadrant tenderness, and I have low suspicion for diverticulosis or diverticulitis. The patient does not have any flank tenderness. The patient does not have gross hematuria. I have decreased suspicion for nephrolithiasis or renal colic. The patient does not have any palpable pulsatile mass or severe abdominal pain radiating to the back. I have low suspicion for aortic aneurysm, dissection or rupture. DISCHARGE Upon reevaluation of the patient, symptoms have improved. No emergent diagnoses were identified. At this time, I feel that the patient stable for discharge. The patient was instructed to follow-up with a primary care physician in 1-3 days. The patient will be given strict precautions with which to return to the emergency department. Prescriptions: Pepcid, Zofran, Keflex DISCLAIMER Inadvertent spelling and grammatical errors are likely due to EHR/dictation software use and do not reflect on the overall quality of patient care. Note that the electronic time recorded on this note does not necessarily reflect the actual time of the patient encounter. Departure Diagnosis: Primary Impression: Urinary tract infection Urinary tract infection type: acute cystitis Hematuria presence: without hematuria Qualified Codes: N30.00 - Acute cystitis without hematuria Additional Impressions: Chronic abdominal pain Epigastric pain Nausea & vomiting Vomiting type: unspecified Vomiting Intractability: non-intractable Qualified Codes: R11.2 - Nausea with vomiting, unspecified Condition: Stable Patient Instructions: Understanding Urinary Tract Infections (UTIs), Epigastric Pain (Uncertain Cause), Nausea and Vomiting-Adult Additional Instructions: Thank you for for coming to [facility] for your care today. Please ask your nurse or provider if you have questions about your care today and do not leave until all your questions have been answered. Please use any medications given as directed and follow-up with your doctor (or the doctor you were referred to) in the next 1-3 days. If you do not have a primary care doctor you may follow up at the community hospital or [facility] (listed below). Yo u may also use motrin and tylenol as needed for fever and/or pain unless instructed otherwise by your provider or nurse. Indications for more urgent follow-up have been discussed, but you may return to the Emergency Department at ANY time for any worrisome or worsening symptoms. If you have abdominal pain, please know that no test or exam you received is perfect and you should follow up within 8 hours for continued pain. If you had any imaging studies today, such as an X-Ray or CT Scan, these studies will be reviewed later by a radiologist. You will be called if there are important findings that were not identified today, so make sure the contact information you provided at registration is correct. If you received any narcotic pain control medicine today, such as Vicodin, Morphine or Dilaudid, your coordination and judgment may be affected for a number of hours. Please do not drive or operate heavy machinery, and you may want someone to assist you at home. If you were given a prescription for narcotic medication, be aware that it is very addictive- use sparingly and only if necessary. PLEASE SEEK FURTHER EVALUATION AND MANAGEMENT AT YOUR DOCTORS OFFICE WITHIN THE NEXT 1-3 DAYS. IT IS YOUR RESPONSIBILITY TO MAKE AN APPOINTMENT FOR FOLOW-UP CARE. IF YOU HAVE A PRIMARY DOCTOR, PLEASE CALL THEIR OFFICE TO SCHEDULE AN APPOINTMENT FOR FOLLOW UP. IF YOU DO NOT HAVE A PRIMARY DOCTOR YOU CAN CALL OUR PHYSICIAN REFERRAL HOTLINE AT IF YOU CAN NOT AFFORD TO SEE A PHYSICIAN YOU CAN CHOSE FROM THE FOLLOWING [facility] CLINICS: [facility] [address] [facility] [place] [address] [facility] [address] [facility] [address] [facility] [address] [facility]. [facility]. [address] MICHELE MALONEY MD Dec 15, 2018 16:36
[2018-12-15] MEDS ORDERED: ONDA4TAB8 PO (16:37)
[2018-12-15] MEDS ORDERED: FAMO-96 PO (16:37)
[2018-12-15] MEDS ORDERED: CEPH-443 PO (16:37)
[2018-12-15 16:46] VITALS: BP 122/67; PULSE 76; RESP 16
[2018-12-16] MEDS ORDERED: NITR-58 PO (09:49)
[2018-12-16] MEDS ORDERED: BEN25 PO (09:53)
== END 2018-12-15 16:51 | disposition home or self-care (01) ==
LOC: E/R 13:38
DX: N30.00 Acute cystitis without hematuria (principal); J44.9 Chronic obstructive pulmonary disease, unspecified; I50.9 Heart failure, unspecified; F17.210 Nicotine dependence, cigarettes, uncomplicated
CPT/HCPCS: 36415; 71045; 80053; 81001; 83690; 85025; 96361; 96365; 96375; J0696; J2405; J7040; Z7502; Z7610

== ENCOUNTER 2018-12-16 09:22 | Emergency (ER) | payer MEDICAID, OTHER ==
[~2018-12-16] VITALS: Ht 157.5 cm; Wt 60.4 kg
[~2018-12-16 09:22] MED LIST changes: +BEN25 PO; +CEPH-443 PO; +CHOL100062 PO; +CIPR500T4 PO; +CORE20CR PO; -EZET10TA31 PO; +FAMO-96 PO; +MAGN400T27 PO; +NITR-58 PO; +ONDA4TAB14 PO; +ONDA4TAB8 PO; +POTA20TA9 PO; +PROM5SYR2 PO; -REPATHA
[2018-12-16 09:24] VITALS: BP 128/66; PULSE 68; RESP 18; Ht 157.5 cm; Wt 60.4 kg
--- NOTE | 2018-12-16 09:52 | ERD ---
ER Documentation Chief Complaint Chief Complaint generalize body rash after taking 1 keflex tab last night HPI 62-year-old female presents with complaint of generalized body rash after taking 1 Keflex tab last night. Patient being treated for UTI with Keflex antibiotic. She otherwise denies upper respiratory symptoms such as shortness of breath, dyspnea, tongue swelling, lip swelling, chest pain or any other concerning symptoms. Rash is mild and at the time of examination patient reports improvement in rash symptoms. He otherwise without complaint. ROS All systems reviewed and are negative except as per history of present illness. Medications Home Meds Active Scripts Nitrofurantoin Monohyd Macrocr* (Macrobid*) 100 Mg Capsr, 100 MG PO BID for 5 Days, CAP Prov:ELIE RADFORD PA-C 12/16/18 Ondansetron Hcl* (Zofran*) 4 Mg Tablet, 4 MG PO Q6H for NAUSEA AND/OR VOMITING, #30 TAB Prov:MICHELE OCHOA MD 12/15/18 Famotidine* (Pepcid*) 20 Mg Tablet, 20 MG PO BID for 14 Days, TAB Prov:MICHELE OCHOA MD 12/15/18 Cephalexin* (Keflex*) 500 Mg Capsule, 500 MG PO BID for 7 Days, CAP Prov:MICHELE OCHOA MD 12/15/18 Reported Medications Magnesium Oxide* (Mag-Oxide*) 400 Mg Tablet, 400 MG PO DAILY, TAB 12/15/18 Promethazine HCl/Codeine (Prometh-Codein 6.25-10 mg/5 ml) 5 Ml Syrup, 5 ML PO Q8 PRN for COUGH 12/15/18 Potassium Chloride (Klor-Con M20) 20 Meq Tab.prt.sr, 20 MEQ PO DAILY 12/15/18 Carvedilol* (Coreg CR*) 20 Mg Capsr, 20 MG PO DAILY, #30 CAP 12/15/18 Cholecalciferol* (Vitamin D3*) 1,000 Unit Tablet, 1000 UNIT PO DAILY, TAB 12/15/18 Albuterol Sulfate* (Albuterol Sulfate* Neb) 0.083%-3 Ml Neb, 2.5 MG NEB Q3H PRN for WHEEZING AND SOB, #30 VIAL 01/03/18 Umeclidinium Brm-Vilanterol Tr (Anoro Ellipta) 62.5-25 Mcg Disk.w.dev, 1 EACH INHALATION DAILY, #1 DISK 01/03/18 Albuterol Sulfate* (Ventolin HFA*) 18 Gm Hfa.aer.ad, 2 PUFF INHALATION Q4H, #1 INHALER 01/03/18 Pantoprazole* (Pantoprazole*) 40 Mg Tablet.dr, 40 MG PO AC BREAKFAST DINNER, TAB 08/03/15 Discontinued Reported Medications [Repatha] No Conflict Check 09/08/18 Ezetimibe* (Zetia*) 10 Mg Tablet, 10 MG PO DAILY, TAB 08/16/16 Allergies Allergies: Coded Allergies: cephalexin (Verified Allergy, Intermediate, 12/16/18) erythromycin base (Verified Allergy, Mild, 02/12/17) ibuprofen (Verified Allergy, Mild, 02/12/17) tetracycline (Verified Allergy, Mild, 02/12/17) iodine (Verified Allergy, Unknown, 02/12/17) Uncoded Allergies: DYE (Allergy, Mild, 02/20/16) IV CONTRAST DYE PMhx/Soc History of Surgery: Yes (TUBAL , HYSTERECTOMY, BILAT BREAST IMPLANT) Anesthesia Reaction: No Hx Neurological Disorder: No Hx Respiratory Disorders: Yes (COPD) Hx Cardiac Disorders: Yes (PM/AICD, ARRHYTHMIA, HIGH CHOLESTEROL) Hx Psychiatric Problems: No Hx Miscellaneous Medical Probl: Yes (L-BREAST IMPLANT COLLAPSE) Hx Alcohol Use: No Hx Substance Use: Yes Hx Tobacco Use: Yes Smoking Status: Current every day smoker FmHx Family History: No diabetes, No coronary disease, No other Physical Exam Vitals Vital Signs Date Temp Pulse Resp B/P (MAP) Pulse Ox O2 O2 Flow FiO2 Time Delivery Rate 12/16/18 97.8 68 18 128/66 97 09:24 (86) Physical Exam Const: No acute distress Head: Atraumatic Eyes: Normal Conjunctiva ENT: Normal External Ears, Nose and Mouth. Neck: Full range of motion. No meningismus. Resp: Clear to auscultation bilaterally Cardio: Regular rate and rhythm, no murmurs Abd: Soft, non tender, non distended. Normal bowel sounds Skin: No petechiae, some areas of patchy erythema to bilateral upper extremities upper torso, blanchable, nontender Back: No midline or flank tenderness Ext: No cyanosis, or edema Neur: Awake and alert Psych: Normal Mood and Affect Procedures/MDM 62-year-old female presents with generalized rash after taking Keflex antibiotic. I have low suspicion for anaphylaxis or any respiratory compromise. Patient has a reassuring examination and stable normal triage vital signs. We will discharge her Macrobid antibiotic, advised patient to stop Keflex antibiotic, Benadryl. Strict return precautions explained to patient in detail. DISPOSITION PLAN: We discussed follow up with the patient's primary care doctor within 24 to 48 hours. Patient counseled regarding my diagnostic impression and care plan. Prior to discharge all questions answered. Pt agrees with treatment plan and understands strict return precautions. Precautionary instructions provided including instructions to return to the ER if not improving or for any worsening or changing symptoms or concerns. Disclaimer: Inadvertent spelling and grammatical errors are likely due to EHR/dictation software use and do not reflect on the overall quality of patient care. Also, please note that the electronic time recorded on this note does not necessarily reflect the actual time of the patient encounter. Departure Diagnosis: Primary Impression: Allergic reaction Condition: Stable Patient Instructions: Allergic Reaction, Drug Additional Instructions: Call your primary care doctor TOMORROW for an appointment during the next 2-3 days.See the doctor sooner or return here if your condition worsens before your appointment time. ELIE RADFORD PA-C Dec 16, 2018 09:52
== END 2018-12-16 10:01 | disposition home or self-care (01) ==
LOC: FTE 09:22
DX: R21 Rash and other nonspecific skin eruption (principal); T36.1X5A Adverse effect of cephalosporins and other beta-lactam antibiotics, initial encounter; J44.9 Chronic obstructive pulmonary disease, unspecified; F17.210 Nicotine dependence, cigarettes, uncomplicated
CPT/HCPCS: 99283

== ENCOUNTER 2019-01-02 14:27 | Emergency (ER) | payer MEDICAID, OTHER ==
[~2019-01-02] VITALS: Ht 152.4 cm; Wt 59.0 kg
[2019-01-02 14:45] VITALS: Ht 152.4 cm; Wt 59.0 kg
[2019-01-02] MEDS ORDERED: ONDANSETRON 4 MG INJ IV STA ×2 (15:11→16:50)
[2019-01-02] MEDS ORDERED: SOD CHLORIDE 0.9% 500 ML IV STA (15:11)
[2019-01-02] MEDS ORDERED: morphine 4 MG/ML VIAL IV STA ×2 (15:11→16:50)
[2019-01-02] MEDS ORDERED: LIDOCAINE/MYLANTA 40 ML BTL PO STA (16:13)
[2019-01-02] MEDS ORDERED: FAMOTIDINE 20 MG INJ IV STA (16:13)
[2019-01-02] MEDS ORDERED: CEFTRIAXONE 1 GM/50 ML (PMX) 50 ML IVPB ONE (17:00)
[2019-01-02 17:20] VITALS: BP 126/77; PULSE 77; RESP 18
--- NOTE | 2019-01-02 17:29 | ERD ---
ER Documentation Chief Complaint Chief Complaint PAIN WITH URINATION, FLANK PAIN X1 WEEK HPI Is a 63-year-old female with history of chronic abdominal pain , CHF, A. fib, and many other comorbidities who presents to the ED complaining of continued urinary symptoms for the past 2 weeks. Patient states she started to develop left flank pain this morning and had 3 episodes of nonbilious, nonbloody emesis prompting her to come here today. She denies any known fevers. She was seen here in December 15 and diagnosed with a UTI. She discharged home with Keflex but had an allergic reaction to this therefore was changed to Macrobid. She states she was on Macrobid for 3 days but does not believe that this antibiotic improved her urinary symptoms. She continues to complain of urinary frequency, urgency, dysuria. No chest pain or shortness of breath. No other complaints. Patient states that she recently finished a 14-day course of antibiotics for "GI issues "about 1-1/2 months ago. ROS All systems reviewed and are negative except as per history of present illness. Medications Home Meds Active Scripts Ciprofloxacin Hcl* (Ciprofloxacin Hcl*) 500 Mg Tablet, 500 MG PO BID for 10 Days, TAB Prov:KELLIIGRMARLEE ESTRELLA PA-C 01/02/19 Ondansetron (Ondansetron Odt) 4 Mg Tab.rapdis, 4 MG PO Q6H PRN for NAUSEA AND/OR VOMITING, #10 TAB Prov:KARENANMARLEE PA-C 01/02/19 Diphenhydramine Hcl* (Benadryl*) 25 Mg Cap, 25 MG PO Q6, #30 CAP Prov:ELIE RADFORDC 12/16/18 Nitrofurantoin Monohyd Macrocr* (Macrobid*) 100 Mg Capsr, 100 MG PO BID for 5 Days, CAP Prov:ELIE RADFORD-C 12/16/18 Ondansetron Hcl* (Zofran*) 4 Mg Tablet, 4 MG PO Q6H for NAUSEA AND/OR VOMITING, #30 TAB Prov:MICHELE OCHOA MD 12/15/18 Famotidine* (Pepcid*) 20 Mg Tablet, 20 MG PO BID for 14 Days, TAB Prov:MICHELE OCHOA MD 12/15/18 Cephalexin* (Keflex*) 500 Mg Capsule, 500 MG PO BID for 7 Days, CAP Prov:MICHELE OCHOA MD 12/15/18 Reported Medications Magnesium Oxide* (Mag-Oxide*) 400 Mg Tablet, 400 MG PO DAILY, TAB 12/15/18 Promethazine HCl/Codeine (Prometh-Codein 6.25-10 mg/5 ml) 5 Ml Syrup, 5 ML PO Q8 PRN for COUGH 12/15/18 Potassium Chloride (Klor-Con M20) 20 Meq Tab.prt.sr, 20 MEQ PO DAILY 12/15/18 Carvedilol* (Coreg CR*) 20 Mg Capsr, 20 MG PO DAILY, #30 CAP 12/15/18 Cholecalciferol* (Vitamin D3*) 1,000 Unit Tablet, 1000 UNIT PO DAILY, TAB 12/15/18 Albuterol Sulfate* (Albuterol Sulfate* Neb) 0.083%-3 Ml Neb, 2.5 MG NEB Q3H PRN for WHEEZING AND SOB, #30 VIAL 01/03/18 Umeclidinium Brm-Vilanterol Tr (Anoro Ellipta) 62.5-25 Mcg Disk.w.dev, 1 EACH INHALATION DAILY, #1 DISK 01/03/18 Albuterol Sulfate* (Ventolin HFA*) 18 Gm Hfa.aer.ad, 2 PUFF INHALATION Q4H, #1 INHALER 01/03/18 Pantoprazole* (Pantoprazole*) 40 Mg Tablet.dr, 40 MG PO AC BREAKFAST DINNER, TAB 08/03/15 Discontinued Scripts Ciprofloxacin Hcl* (Ciprofloxacin Hcl*) 500 Mg Tablet, 500 MG PO BID for 7 Days, TAB Prov:MARLEE MOYA PA-C 01/02/19 Allergies Allergies: Coded Allergies: cephalexin (Verified Allergy, Intermediate, 12/16/18) erythromycin base (Verified Allergy, Mild, 02/12/17) ibuprofen (Verified Allergy, Mild, 02/12/17) tetracycline (Verified Allergy, Mild, 02/12/17) iodine (Verified Allergy, Unknown, 02/12/17) Uncoded Allergies: DYE (Allergy, Mild, 02/20/16) IV CONTRAST DYE PMhx/Soc History of Surgery: Yes (TUBAL , HYSTERECTOMY, BILAT BREAST IMPLANT) Anesthesia Reaction: No Hx Neurological Disorder: No Hx Respiratory Disorders: Yes (COPD) Hx Cardiac Disorders: Yes (PM/AICD, ARRHYTHMIA, HIGH CHOLESTEROL) Hx Psychiatric Problems: No Hx Miscellaneous Medical Probl: Yes (L-BREAST IMPLANT COLLAPSE) Hx Alcohol Use: No Hx Substance Use: Yes Hx Tobacco Use: Yes Smoking Status: Never smoker Physical Exam Vitals Vital Signs Date Temp Pulse Resp B/P (MAP) Pulse Ox O2 O2 Flow FiO2 Time Delivery Rate 01/02/19 99.5 78 17 124/73 95 14:45 (90) Physical Exam Const: + Moderate distress secondary to pain. Head: Atraumatic Eyes: Normal Conjunctiva ENT: Normal External Ears, Nose and Mouth. Neck: Full range of motion. No meningismus. Resp: Clear to auscultation bilaterally Cardio: Regular rate and rhythm, no murmurs Abd: Soft, + diffuse abdominal tenderness palpation, no rebound, no guarding, non distended. Normal bowel sounds Skin: No petechiae or rashes Back: + Left CVA tenderness palpation. Ext: No cyanosis, or edema Neur: Awake and alert Psych: Normal Mood and Affect Result Diagram: 01/02/19 1530 01/02/19 1530 Results 24 hrs Laboratory Tests Test 01/02/19 15:30 White Blood Count 15.0 10^3/ul Red Blood Count 4.66 10^6/ul Hemoglobin 13.6 g/dl Hematocrit 41.3 % Mean Corpuscular Volume 88.6 fl Mean Corpuscular Hemoglobin 29.2 pg Mean Corpuscular Hemoglobin Concent 32.9 g/dl Red Cell Distribution Width 13.1 % Platelet Count 291 10^3/UL Mean Platelet Volume 9.7 fl Immature Granulocytes % 0.300 % Neutrophils % 65.5 % Lymphocytes % 22.1 % Monocytes % 7.8 % Eosinophils % 4.0 % Basophils % 0.3 % Nucleated Red Blood Cells % 0.0 /100WBC Immature Granulocytes # 0.050 10^3/ul Neutrophils # 9.8 10^3/ul Lymphocytes # 3.3 10^3/ul Monocytes # 1.2 10^3/ul Eosinophils # 0.6 10^3/ul Basophils # 0.1 10^3/ul Nucleated Red Blood Cells # 0.0 10^3/ul Urine Color YELLOW Urine Clarity CLOUDY Urine pH 7.0 Urine Specific [place] 1.010 Urine Ketones NEGATIVE mg/dL Urine Nitrite POSITIVE mg/dL Urine Bilirubin NEGATIVE mg/dL Urine Urobilinogen NEGATIVE mg/dL Urine Leukocyte Esterase 2+ Tee/ul Urine Microscopic RBC 6 /HPF Urine Microscopic WBC 95 /HPF Urine Bacteria FEW /HPF Urine Hemoglobin 1+ mg/dL Urine Glucose NEGATIVE mg/dL Urine Total Protein NEGATIVE mg/dl Sodium Level 143 mmol/L Potassium Level 3.8 mmol/L Chloride Level 105 mmol/L Carbon Dioxide Level 31 mmol/L Anion Gap 7 Blood Urea Nitrogen 12 mg/dl Creatinine 0.79 mg/dl Est Glomerular Filtrat Rate mL/min > 60 mL/min Glucose Level 101 mg/dl Calcium Level 9.5 mg/dl Total Bilirubin 0.5 mg/dl Direct Bilirubin 0.00 mg/dl Indirect Bilirubin 0.5 mg/dl Aspartate Amino Transf (AST/SGOT) 24 IU/L Alanine Aminotransferase (ALT/SGPT) 20 IU/L Alkaline Phosphatase 92 IU/L Total Protein 7.3 g/dl Albumin 4.1 g/dl Globulin 3.20 g/dl Albumin/Globulin Ratio 1.28 Lipase 88 U/L Current Medications Medications Dose Sig/Gus Start Time Status Last (Trade) Ordered Route PRN Stop Time Admin Dose Reason Admin Sodium 500 ml @ Q1H STAT 01/02/19 DC 01/02/19 Chloride 500 mls/hr IV 15:11 15:26 01/02/19 16:10 Morphine 4 mg ONCE STAT 01/02/19 DC 01/02/19 Sulfate IV 15:11 15:26 (morphine) 01/02/19 15:14 Ondansetron 4 mg ONCE STAT 01/02/19 DC 01/02/19 HCl (Zofran IV 15:11 15:26 Inj) 01/02/19 15:14 Famotidine 20 mg ONCE STAT 01/02/19 DC 01/02/19 (Pepcid Iv) IV 16:13 16:20 01/02/19 16:14 40 ml ONCE STAT 01/02/19 DC 01/02/19 Miscellaneous PO 16:13 16:20 Medication 01/02/19 16:14 (Gi Cocktail (2)) Ceftriaxone 50 ml @ ONCE ONCE 01/02/19 01/02/19 Sodium 100 mls/hr IVPB 17:00 17:07 01/02/19 17:29 Ondansetron 4 mg ONCE STAT 01/02/19 DC 01/02/19 HCl (Zofran IV 16:50 16:56 Inj) 01/02/19 16:52 Morphine 4 mg ONCE STAT 01/02/19 DC 01/02/19 Sulfate IV 16:50 16:56 (morphine) 01/02/19 16:52 Procedures/MDM LABS & DIAGNOSTIC IMAGING: CBC: + Leukocytosis with WBC of 15, likely stress reaction CMP: no e/o severe acidosis, alkalosis, renal failure, diabetic ketoacidosis, liver disease The patient's lipase is normal and indicative of no pancreatitis. Urine: + Leukoesterase, nitrites, pyuria PROCEDURES: CT pelvis: The bladder appears to be within normal limits. Uterus is not visualized. The rectosigmoid colon demonstrates diverticulosis. Several fluid filled loops of small bowel noted within pelvis. No significant pelvic lymphadenopathy. The visualized osseous structures appears to be within normal limits. IMPRESSION: 1. MILD RIGHT PERINEPHRIC FATTY STRANDING WITHOUT EVIDENCE OF RENAL/URETERIC CALCULI OR OBSTRUCTIVE UROPATHY. CANNOT EXCLUDE UNDERLYING INFECTION. 2. The left kidney is unremarkable. No evidence of obstruction or hydronephrosis. 3. Status post cholecystectomy. 4. No gross evidence of bowel obstruction. Stool filled loops of large bowel suggestive of constipation. Sigmoid colon diverticulosis. The appendix not visualized, however no inflammatory changes within right lower quadrant. 5. Status post hysterectomy. ED COURSE: The patient was given gentle fluid hydration, Zofran, morphine, Rocephin The medication was well tolerated and the patient had market improvement in symptoms. The patient remained stable throughout ED course. MEDICAL DECISION MAKIN-year-old female with history of chronic abdominal pain and recently treated with a UTI presents with continued urinary symptoms and flank pain. CT abdomen and UA is consistent with pyelonephritis. Patient will be treated w/ 1 g of IV ceftriaxone and discharged home with 10 days of Cipro. Patient did recently finish a course of ciprofloxacin over a month and a half ago, I discussed this with supervising doctor, Dr. Hall who agreed with this plan. I reviewed her records from last visit and no urine culture was obtained, her urine was sent for culture and is pending at time of discharge today. Her pain was treated with morphine and Zofran. She has no evidence of severe dehydration or sepsis at this time. She is afebrile, nontoxic appearing and well hydrated. Follow-up with her PCP as outpatient. Strict return precautions were discussed. Of note, patient does have history of chronic abdominal pain. She requested GI cocktail and Pepcid for her abdominal distention and pain. CT as above is negative for obstruction or any other emergent abdominal process. I believe the remainder of her symptoms are likely chronic in nature. PRESCRIPTIONS: Cipro x10 days SPECIALIST FOLLOW UP RECOMMENDED: None Departure Diagnosis: Primary Impression: Pyelonephritis Additional Impression: Chronic abdominal pain Condition: Stable Patient Instructions: Pyelonephritis, Female (Adult) Additional Instructions: yOU MUST take the antibiotics for the next 10 days. He can take the Zofran for any nausea vomiting. You must follow-up with the primary care provider next week. Return here sooner for any worsening pain, fevers, pain or any other concerns. MARLEE MOYA PA-C Jan 02, 2019 17:28
== END 2019-01-02 17:28 | disposition home or self-care (01) ==
LOC: FTE 14:27
DX: N12 Tubulo-interstitial nephritis, not specified as acute or chronic (principal); J44.9 Chronic obstructive pulmonary disease, unspecified; I50.9 Heart failure, unspecified; Z87.891 Personal history of nicotine dependence
CPT/HCPCS: 74176; 80053; 81001; 83690; 85025; 87086; J0696; J2270; J2405; J7040; Z7610; 36415; 96361; 96365; 96375; 96376